=== PATIENT | female | born 1945 | race American Indian/Alaskan Native ===

== ENCOUNTER 2017-02-10 17:00 | Emergency (ER) | payer OTHER, MEDICARE ==
[2017-02-10] MEDS ORDERED: NORCO 5/325 PO ONE (18:08)
[2017-02-10 18:25] VITALS: BP 153/78
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
[2017-02-10] MEDS ORDERED: NORCO PO ONE (20:44)
[2017-02-10] MEDS ORDERED: NORCO 5/325 ONE (20:49)
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
== END 2017-02-10 20:53 | disposition home or self-care (01) ==
LOC: ED 17:00
DX: S13.9XXA Sprain of joints and ligaments of unspecified parts of neck, initial encounter (principal); I10 Essential (primary) hypertension; E11.9 Type 2 diabetes mellitus without complications; V49.49XA Driver injured in collision with other motor vehicles in traffic accident, initial encounter; X58.XXXA Exposure to other specified factors, initial encounter; Y93.89 Activity, other specified; Y92.89 Other specified places as the place of occurrence of the external cause; Y99.8 Other external cause status
CPT/HCPCS: 72040; 99283

== ENCOUNTER 2021-06-26 11:05 | Outpatient (CLI) | payer MEDICARE ==
--- NOTE | 2021-06-26 14:26 | Fluoroscopy Report ---
AIR-CONTRAST BARIUM ENEMA HISTORY: Colon cancer screening comparison: None. FINDINGS: The colon is normal caliber throughout. Mild to moderate diverticular changes are noted in the descending and sigmoid colon. No evidence for mass, mucosal defect or polyposis. IMPRESSION: No evidence for colon mass. Mild to moderate diverticulosis of the distal colon. Fluoroscopy time: 3.1 minutes. Fluoroscopic images: 16. Signer Name: Demetri Beltran Jr, MD Signed: 06/26/2021 2:21 PM Workstation Name: [id number]
== END 2021-06-26 11:06 | disposition home or self-care (01) ==
LOC: FLUORO 11:05
PROVIDERS: ATTEND Internal Medicine Gastroenterology
DX: K57.30 Diverticulosis of large intestine without perforation or abscess without bleeding (principal); Z12.11 Encounter for screening for malignant neoplasm of colon
CPT/HCPCS: 74280